=== PATIENT | male | born 1950 | race Caucasian/White ===

== ENCOUNTER 2016-09-18 07:59 | Day surgery (SDC) | payer OTHER ==
[2016-09-16 11:34] VITALS: BMI 35.4
[~2016-09-18 07:59] MED LIST: LACTATED RINGERS 1,000 ML IV SCH; LIDOCAINE 1% 20 ML VIAL (10MG/ML) FOR IV START INTRADERMA PRN
[2016-09-18 08:40] VITALS: RESP 18; TEMP 98.7
[2016-09-18 08:54] LABS: Glucose,Whole Blood 134 mg/dL (75-99)
[2016-09-18] MEDS ORDERED: PROPOFOL 10 MG/ML 20 ML VIAL IV ONE (09:33)
--- NOTE | 2016-09-18 10:21 | P.PCN ---
Date of Procedure: 09/18/16 Procedure(s) Performed: Procedure: Total colonoscopy. Preoperative diagnosis: Screening for neoplasia. Postoperative diagnosis: Exam within normal limits. Preparation: HalfLytely prep. Sedation: Was provided by anesthesia. Brief clinical history: The patient is a 65-year-old male who is referred for this evaluation for screening for neoplasia. He had a colonoscopy years back and he was told he had polyps. He has no abdominal complaints, bleeding or anemia. Procedure: With the patient on his left lateral decubitus position and after informed consent and adequate sedation, the perianal area was inspected and it did not show any fissures or fistulas. There were no masses felt on digital rectal examination. The Olympus CFQ 160L video colonoscope was then inserted in the rectum in the usual fashion and advanced to the cecum. The mucosa appeared healthy. No polyps or tumors were seen or any obvious diverticular disease. I retroflexed the endoscope in the rectum before the endoscope was withdrawn. The patient tolerated the procedure well. Plan: The patient was reassured. He will follow up with you as planned and with his history of polyps, I recommended repeat exam in 5 years.
[2016-09-18 10:40] VITALS: BP 112/56; PULSE 55
== END 2016-09-18 10:52 | disposition home or self-care (01) ==
LOC: ORWHC2ENDO 07:59
DX: Z12.11 Encounter for screening for malignant neoplasm of colon (principal); I10 Essential (primary) hypertension; I25.10 Atherosclerotic heart disease of native coronary artery without angina pectoris; E78.5 Hyperlipidemia, unspecified; E11.9 Type 2 diabetes mellitus without complications; M19.90 Unspecified osteoarthritis, unspecified site; F17.200 Nicotine dependence, unspecified, uncomplicated; Z86.010 Personal history of colon polyps; Z79.84 Long term (current) use of oral hypoglycemic drugs; Z79.1 Long term (current) use of non-steroidal anti-inflammatories (NSAID); Z79.82 Long term (current) use of aspirin; Z79.899 Other long term (current) drug therapy
CPT/HCPCS: G0105; J2704

== ENCOUNTER 2017-08-25 13:49 | Emergency (ER) | payer OTHER ==
--- NOTE | 2017-08-25 15:20 | ED ---
General Adult HPI - General Chief complaint: Shortness of Breath Stated complaint: Legs swelling Time Seen by Provider: 08/25/17 14:06 Source: patient, RN notes reviewed, old records reviewed Mode of arrival: ambulatory Limitations: no limitations - History of Present Illness Initial comments: This is a 66-year-old male to the ER for evaluation of weakness. Shortness of breath and significant lower extremity edema. Patient has history of lung disease and history of heart disease. Patient states he was sent to the ER for evaluation regarding his lower extremity edema. Increased edema despite medication. Patient states he does not take Lasix completely as prescribed. He has had neck history of drinking. No abdominal pain no chest pain or shortness of breath currently. Patient is recent change in medications - Related Data Home Medications Medication Instructions Recorded Confirmed Acetaminophen Tab [Tylenol Tab] 500 mg PO Q6HR PRN 06/03/16 08/25/17 Aspirin EC [Ecotrin] 325 mg PO DAILY 06/03/16 08/25/17 Hydrochlorothiazide [Hydrodiuril] 25 mg PO DAILY 06/03/16 08/25/17 Metoprolol Tartrate [Lopressor] 100 mg PO DAILY 06/03/16 08/25/17 amLODIPine [Norvasc] 10 mg PO DAILY 06/03/16 08/25/17 metFORMIN HCL [Glucophage] 1,000 mg PO BID 09/16/16 08/25/17 Albuterol Nebulized [Ventolin 2.5 mg INHALATION RT-QID 08/25/17 08/25/17 Nebulized] Artificial Tears-Hypromellose 1 drops BOTH EYES QID 08/25/17 08/25/17 [Artificial Tear Drops] Ciprofloxacin Ophth Soln [Cipro 2 drops BOTH EYES BID 08/25/17 08/25/17 0.3% Ophth Soln] Saxagliptin HCl [Onglyza] 2.5 mg PO DAILY 08/25/17 08/25/17 Previous Rx's Medication Instructions Recorded Furosemide [Lasix] 40 mg PO BID #15 tablet 08/25/17 Allergies Allergy/AdvReac Type Severity Reaction Status Date / Time No Known Allergies Allergy Verified 08/25/17 14:46 Review of Systems ROS Statement: Those systems with pertinent positive or pertinent negative responses have been documented in the HPI. ROS Other: All systems not noted in ROS Statement are negative. Past Medical History Past Medical History: Coronary Artery Disease (CAD), Chest Pain / Angina, Heart Failure, Diabetes Mellitus, Hypertension, Osteoarthritis (OA), Skin Disorder Additional Past Medical History / Comment(s): rash on lower legs, History of Any Multi-Drug Resistant Organisms: None Reported Past Surgical History: Cardiac Valve Replacement, Heart Catheterization, Hernia Repair, Orthopedic Surgery Additional Past Surgical History / Comment(s): aortic valve rreplacement 2014 , sternal repair surgery after valve replacement(wire broke), rt knee arthroscopy , rt ear-graft to ear drum, deviated septum repair, Past Anesthesia/Blood Transfusion Reactions: No Reported Reaction Additional Past Anesthesia/Blood Transfusion Reaction / Comment(s): claustrophobia Past Psychological History: No Psychological Hx Reported Smoking Status: Former smoker Past Alcohol Use History: None Reported Past Drug Use History: None Reported - Past Family History Father Family Medical History: Coronary Artery Disease (CAD) Additional Family Medical History / Comment(s): heart client resource specialist replaced Mother Family Medical History: Cancer Additional Family Medical History / Comment(s): ovarian cancer General Exam Limitations: no limitations General appearance: alert, in no apparent distress Head exam: Present: atraumatic, normocephalic, normal inspection Eye exam: Present: normal appearance, PERRL, EOMI. Absent: scleral icterus, conjunctival injection, periorbital swelling ENT exam: Present: normal exam, mucous membranes moist Neck exam: Present: normal inspection. Absent: tenderness, meningismus, lymphadenopathy Respiratory exam: Present: normal lung sounds bilaterally, decreased breath sounds, prolonged expiratory. Absent: respiratory distress, wheezes, rales, rhonchi, stridor Cardiovascular Exam: Present: regular rate, normal rhythm, normal heart sounds. Absent: systolic murmur, diastolic murmur, rubs, gallop, clicks GI/Abdominal exam: Present: soft, normal bowel sounds. Absent: distended, tenderness, guarding, rebound, rigid Extremities exam: Present: normal inspection, full ROM, normal capillary refill , other (Bilateral Shorty edema, 3+). Absent: tenderness, pedal edema, joint swelling, calf tenderness Back exam: Present: normal inspection Neurological exam: Present: alert, oriented X3, CN II-XII intact Psychiatric exam: Present: normal affect, normal mood Skin exam: Present: warm, dry, intact, normal color. Absent: rash Course Vital Signs 08/25/17 08/25/17 08/25/17 14:02 14:49 16:13 Temperature 98.3 F 98.5 F Pulse Rate 62 55 L Pulse Rate [ 60 Pulse Oximetery ] Respiratory 20 18 Rate Blood Pressure 145/68 125/66 O2 Sat by Pulse 98 99 Oximetry EKG Findings - EKG Comments: EKG Findings:: EKG shows sinus bradycardia rate 59, NM 176, QRS 104, QTC 445 Medical Decision Making - Medical Decision Making 66 male the ER for evaluation. Patient presents for evaluation regarding lower extremity edema, no significant cause found. Patient can be discharged home - Lab Data Result diagrams: 08/25/17 14:48 08/25/17 14:48 Lab Results 08/25/17 08/25/17 08/25/17 Range/Units 14:48 14:48 14:48 WBC 10.1 (3.8-10.6) k/uL RBC 4.54 (4.30-5.90) m/uL Hgb 14.2 (13.0-17.5) gm/dL Hct 41.2 (39.0-53.0) % MCV 90.8 (80.0-100.0) fL MCH 31.3 (25.0-35.0) pg MCHC 34.5 (31.0-37.0) g/dL RDW 12.6 (11.5-15.5) % Plt Count 231 (150-450) k/uL Neutrophils % 62 % Lymphocytes % 27 % Monocytes % 6 % Eosinophils % 2 % Basophils % 1 % Neutrophils # 6.2 (1.3-7.7) k/uL Lymphocytes # 2.8 (1.0-4.8) k/uL Monocytes # 0.6 (0-1.0) k/uL Eosinophils # 0.2 (0-0.7) k/uL Basophils # 0.1 (0-0.2) k/uL PT (9.0-12.0) sec INR (<1.2) APTT (22.0-30.0) sec D-Dimer (<0.60) mg/L FEU Sodium 141 (137-145) mmol/L Potassium 3.8 (3.5-5.1) mmol/L Chloride 104 (98-107) mmol/L Carbon Dioxide 26 (22-30) mmol/L Anion Gap 11 mmol/L BUN 16 (9-20) mg/dL Creatinine 0.80 (0.66-1.25) mg/dL Est GFR (MDRD) Af Amer >60 (>60 ml/min/1.73 sqM) Est GFR (MDRD) Non-Af >60 (>60 ml/min/1.73 sqM) Glucose 124 H (74-99) mg/dL Calcium 9.7 (8.4-10.2) mg/dL Phosphorus 3.5 (2.5-4.5) mg/dL Magnesium 1.9 (1.6-2.3) mg/dL Total Bilirubin 0.6 (0.2-1.3) mg/dL AST 18 (17-59) U/L ALT 27 (21-72) U/L Alkaline Phosphatase 49 (38-126) U/L Total Creatine Kinase 71 (55-170) U/L CK-MB (CK-2) 1.4 (0.0-2.4) ng/mL CK-MB (CK-2) Rel Index 2.0 Troponin I <0.012 (0.000-0.034) ng/mL NT-Pro-B Natriuret Pep pg/mL Total Protein 7.4 (6.3-8.2) g/dL Albumin 4.3 (3.5-5.0) g/dL 08/25/17 08/25/17 Range/Units 14:48 14:48 WBC (3.8-10.6) k/uL RBC (4.30-5.90) m/uL Hgb (13.0-17.5) gm/dL Hct (39.0-53.0) % MCV (80.0-100.0) fL MCH (25.0-35.0) pg MCHC (31.0-37.0) g/dL RDW (11.5-15.5) % Plt Count (150-450) k/uL Neutrophils % % Lymphocytes % % Monocytes % % Eosinophils % % Basophils % % Neutrophils # (1.3-7.7) k/uL Lymphocytes # (1.0-4.8) k/uL Monocytes # (0-1.0) k/uL Eosinophils # (0-0.7) k/uL Basophils # (0-0.2) k/uL PT 10.6 (9.0-12.0) sec INR 1.1 (<1.2) APTT 23.8 (22.0-30.0) sec D-Dimer 0.46 (<0.60) mg/L FEU Sodium (137-145) mmol/L Potassium (3.5-5.1) mmol/L Chloride (98-107) mmol/L Carbon Dioxide (22-30) mmol/L Anion Gap mmol/L BUN (9-20) mg/dL Creatinine (0.66-1.25) mg/dL Est GFR (MDRD) Af Amer (>60 ml/min/1.73 sqM) Est GFR (MDRD) Non-Af (>60 ml/min/1.73 sqM) Glucose (74-99) mg/dL Calcium (8.4-10.2) mg/dL Phosphorus (2.5-4.5) mg/dL Magnesium (1.6-2.3) mg/dL Total Bilirubin (0.2-1.3) mg/dL AST (17-59) U/L ALT (21-72) U/L Alkaline Phosphatase (38-126) U/L Total Creatine Kinase (55-170) U/L CK-MB (CK-2) (0.0-2.4) ng/mL CK-MB (CK-2) Rel Index Troponin I (0.000-0.034) ng/mL NT-Pro-B Natriuret Pep 228 pg/mL Total Protein (6.3-8.2) g/dL Albumin (3.5-5.0) g/dL - Radiology Data Radiology results: report reviewed (Ultrasound lower extremity is negative), image reviewed Disposition Clinical Impression: Bilateral leg edema Disposition: HOME SELF-CARE Condition: Good Instructions: Leg Edema (ED) Prescriptions: Furosemide [Lasix] 40 mg PO BID #15 tablet Referrals: [facility],Clinic [Primary Care Provider] - 1-2 days
[2017-08-25 15:27] LABS: Basophils # (A) 0.1 k/uL (0-0.2); Basophils % (A) 1 %; Eosinophils # (A) 0.2 k/uL (0-0.7); Eosinophils % (A) 2 %; HCT 41.2 % (39.0-53.0); HGB 14.2 gm/dL (13.0-17.5); Lymphocytes # (A) 2.8 k/uL (1.0-4.8); Lymphocytes % (A) 27 %; MCH 31.3 pg (25.0-35.0); MCHC 34.5 g/dL (31.0-37.0); MCV 90.8 fL (80.0-100.0); Mean Platelet Volume 7.4; Monocytes # (A) 0.6 k/uL (0-1.0); Monocytes % (A) 6 %; Neutrophils # (A) 6.2 k/uL (1.3-7.7); Neutrophils % (A) 62 %; Platelet Count 231 k/uL (150-450); RBC 4.54 m/uL (4.30-5.90); RDW 12.6 % (11.5-15.5); WBC 10.1 k/uL (3.8-10.6)
[2017-08-25 15:37] LABS: ALT 27 U/L (21-72); AST 18 U/L (17-59); Albumin 4.3 g/dL (3.5-5.0); Alkaline Phosphatase 49 U/L (38-126); Anion Gap 11 mmol/L; Blood Urea Nitrogen 16 mg/dL (9-20); Calcium 9.7 mg/dL (8.4-10.2); Carbon Dioxide 26 mmol/L (22-30); Chloride 104 mmol/L (98-107); Glucose 124 mg/dL (74-99); Magnesium 1.9 mg/dL (1.6-2.3); Phosphorus 3.5 mg/dL (2.5-4.5); Potassium 3.8 mmol/L (3.5-5.1); Sodium 141 mmol/L (137-145); Total Bilirubin 0.6 mg/dL (0.2-1.3); Total Protein 7.4 g/dL (6.3-8.2)
[2017-08-25 15:38] LABS: INR 1.1 (<1.2); Partial Thromboplastin Time 23.8 sec (22.0-30.0); Prothrombin Time 10.6 sec (9.0-12.0)
--- NOTE | 2017-08-25 15:39 | US ---
EXAMINATION TYPE: US venous doppler duplex LE DATE OF EXAM: 08/25/2017 3:32 PM COMPARISON: NONE CLINICAL HISTORY: Pain. Swelling SIDE PERFORMED: Bilateral TECHNIQUE: The lower extremity deep venous system is examined utilizing real time linear array sonog lindy with graded compression, doppler sonography and color-flow sonography. VESSELS IMAGED: External Iliac Vein (EIV) Common Femoral Vein Deep Femoral Vein Greater Saphenous Vein * Femoral Vein Popliteal Vein Small Saphenous Vein * Proximal Calf Veins (* superficial vessels) Grayscale, color doppler, spectral doppler imaging performed of the deep veins of the lower extremiti es. There is normal flow, compressibility, vascular waveforms. Right Leg: Negative for DVT Left Leg: Negative for DVT IMPRESSION: No sonographic evidence of deep venous thrombosis within either lower extremity.
[2017-08-25] MEDS ORDERED: ACETAMINOPHEN TAB 325 MG TAB PO STA (15:43)
[2017-08-25 15:44] LABS: D-Dimer 0.46 mg/L FEU (<0.60)
[2017-08-25 15:54] LABS: Creatine Kinase 71 U/L (55-170)
[2017-08-25 16:07] LABS: Creatine Kinase MB 1.4 ng/mL (0.0-2.4); Troponin I <0.012 ng/mL (0.000-0.034)
--- NOTE | 2017-08-25 16:10 | XR ---
EXAMINATION TYPE: XR chest 2V DATE OF EXAM: 08/25/2017 COMPARISON: 06/03/2016 HISTORY: Weakness, edema, chest pain, and shortness of breath. TECHNIQUE: Frontal and lateral views of the chest are obtained. FINDINGS: There is no focal air space opacity, pleural effusion, or pneumothorax seen. The cardiac silhouette size is upper limits normal. Cardiac valvular replacement is noted. Midline sternotomy w ires are present. There is dehiscence of the mid sternotomy wire, unchanged from the prior. The osseo us structures are intact. Mild acromio clavicular arthropathy is present. IMPRESSION: No acute cardiopulmonary process.
[2017-08-25 16:14] VITALS: BP 125/66; PULSE 55; RESP 18; TEMP 98.5
== END 2017-08-25 16:40 | disposition home or self-care (01) ==
LOC: EC 13:49
DX: R60.0 Localized edema (principal); R06.02 Shortness of breath; R53.1 Weakness; I25.119 Atherosclerotic heart disease of native coronary artery with unspecified angina pectoris; I11.0 Hypertensive heart disease with heart failure; I50.9 Heart failure, unspecified; E11.9 Type 2 diabetes mellitus without complications; Z87.891 Personal history of nicotine dependence; Z79.82 Long term (current) use of aspirin; Z79.84 Long term (current) use of oral hypoglycemic drugs; Z79.899 Other long term (current) drug therapy
CPT/HCPCS: 36415; 71046; 80053; 82550; 82553; 83735; 83880; 84100; 84484; 85025; 85379; 85610; 85730; 93005; 93970; 99285

== ENCOUNTER → 2019-02-25 | Outpatient (CLI) | payer OTHER ==
[2019-02-25 11:09] LABS: HCT 43.5 % (39.0-53.0); HGB 14.7 gm/dL (13.0-17.5); MCH 31.4 pg (25.0-35.0); MCHC 33.8 g/dL (31.0-37.0); MCV 92.9 fL (80.0-100.0); Mean Platelet Volume 8.3; Platelet Count 201 k/uL (150-450); RBC 4.68 m/uL (4.30-5.90); WBC 8.3 k/uL (3.8-10.6)
[2019-02-25 11:24] LABS: Magnesium 2.1 mg/dL (1.6-2.3); Potassium 4.9 mmol/L (3.5-5.1)
== END | disposition home or self-care (01) ==
LOC: LABPAT 10:34
PROVIDERS: ATTEND Internal Medicine Cardiovascular Disease
DX: Z01.812 Encounter for preprocedural laboratory examination (principal); I35.9 Nonrheumatic aortic valve disorder, unspecified; R00.1 Bradycardia, unspecified
CPT/HCPCS: 36415; 80051; 82565; 82947; 83735; 84520; 85027

== ENCOUNTER 2019-03-14 06:09 | Day surgery (SDC) | payer OTHER ==
[2019-03-08 11:38] VITALS: BMI 38.4
[~2019-03-14 06:09] MED LIST changes: +ALPRAZolam 0.25 MG TAB PO PRN; +ALPRAZolam 0.5 MG TAB PO PRN; +ASPIRIN 325 MG TAB PO STA; +ATORVASTATIN 80 MG TAB PO STA; -LACTATED RINGERS 1,000 ML IV SCH; -LIDOCAINE 1% 20 ML VIAL (10MG/ML) FOR IV START INTRADERMA PRN; +NITROGLYCERIN SL TABS 0.4 MG TAB SUBLINGUAL PRN; +SODIUM CHLORIDE 0.9% 1,000 ML in EMPTY BAG 1 BAG IV ONE
[2019-03-14] MEDS ORDERED: ASPIRIN 81 MG ONE (06:50)
[2019-03-14 06:55] VITALS: TEMP 98
[2019-03-14] MEDS ORDERED: VERAPAMIL 2.5 MG/ML 2 ML AMP ONE (07:30)
[2019-03-14] MEDS ORDERED: LIDOCAINE 1% INJ 10MG/ML (20 ML MDV) ONE (07:30)
[2019-03-14] MEDS ORDERED: fentaNYL (PF) 50 MCG/ML 2 ML AMP ONE (07:34)
[2019-03-14] MEDS ORDERED: MIDAZOLAM (PF) 2 MG/2 ML VIAL IV ONE (07:47)
[2019-03-14] MEDS ORDERED: fentaNYL (PF) 50 MCG/ML 2 ML AMP IV ONE (07:47)
[2019-03-14] MEDS ORDERED: LIDOCAINE 1% INJ 10MG/ML (20 ML MDV) SQ ONE (07:49)
[2019-03-14] MEDS ORDERED: VERAPAMIL SYRINGE (5 MG/10 ML) INTRAARTER ONE ×2 (07:50→08:00)
[2019-03-14] MEDS ORDERED: HEPARIN SODIUM 1,000 UN/ML (10ML VL) IV ONE (07:52)
[2019-03-14] MEDS ORDERED: IOPAMIDOL-370 125ML BTL INJ ONE (08:00)
[2019-03-14] MEDS ORDERED: RX INFO: IV CONTRAST WAS GIVEN 1 EACH MISC MISCELLANE PRN (08:08)
[2019-03-14] MEDS ORDERED: SODIUM CHLORIDE 0.9% 1,000 ML IV SCH (08:15)
--- NOTE | 2019-03-14 08:17 | P.CARDCATH ---
Date of Procedure: 03/14/19 Preoperative Diagnosis: Symptoms of shortness of breath and positive stress test Postoperative Diagnosis: Mild coronary artery disease Procedure(s) Performed: Left heart catheterization without left ventriculography Description of Procedure: HISTORY: This is a 68-year-old gentleman with history of hypertension, hypercholesterolemia and diabetes and also previous aortic valve replacement who has been experiencing exertional shortness of breath. Patient had echocardiogram and stress test. Echocardiogram showed normal LV function and normal function of the prosthetic aortic valve. Stress test is size to possible multivessel disease. Patient is advised to have a cardiac catheterization for definitive diagnosis. CONSENT:I have discussed the risks, benefits and alternative therapies for the above-mentioned procedure and for both sedation/analgesia as well as necessary blood product administration, if indicated, as they pertain to this patient. The patient has indicated understanding and acceptance of the risks and procedures discussed. PROCEDURE: Patient was brought to the lab in a fasting state. Patient was given some IV sedation. The right wrist is infiltrated with lidocaine and right radial artery was entered using Seldinger technique. A 6-Kyrgyz catheter was left in place and selective coronary arteriography was performed. Patient tolerated the procedure well. TR band was applied for hemostasis. No immediate complications were noted and patient was transferred to [facility] in a stable condition Conscious Sedation: Versed 1mg Fentanyl 50 g Duration 13 minutes HEMODYNAMICS: The aortic pressure was 140/70. Left ventricular end-diastolic pressure was not measured SELECTIVE CORONARY ARTERIOGRAPHY: LEFT MAIN: Normal length and free of any occlusive disease THE LEFT ANTERIOR DESCENDING CORONARY ARTERY:. Good caliber vessel which wraps around the apex and gives rise to several septal and small diagonal branches. The LAD has mild irregularities in the proximal portion without any significant obstructive disease THE LEFT CIRCUMFLEX AND IS CORONARY ARTERY:. Small and nondominant vessel free of any occlusive disease THE RIGHT CORONARY ARTERY:. Dominant vessel with about 30% stenosis in the midportion LEFT VENTRICULOGRAPHY: Not performed FINAL IMPRESSION:. Mild coronary artery disease with a plaque in the LAD and also 30-40% lesion in mid RCA. PLAN: Maximum medical therapy and risk factor modification PROGNOSIS:. Good
[2019-03-14 08:44] VITALS: RESP 18
[2019-03-14 09:58] VITALS: BP 114/54; PULSE 54
== END 2019-03-14 11:55 | disposition home or self-care (01) ==
LOC: CATHCVL 06:09
PROVIDERS: ATTEND Internal Medicine Cardiovascular Disease
DX: I25.10 Atherosclerotic heart disease of native coronary artery without angina pectoris (principal); I10 Essential (primary) hypertension; I35.9 Nonrheumatic aortic valve disorder, unspecified; E78.00 Pure hypercholesterolemia, unspecified; E11.9 Type 2 diabetes mellitus without complications; E78.5 Hyperlipidemia, unspecified; Z95.2 Presence of prosthetic heart valve; Z79.82 Long term (current) use of aspirin; Z79.84 Long term (current) use of oral hypoglycemic drugs; Z79.899 Other long term (current) drug therapy
CPT/HCPCS: 93454; C1894; J2001; J3010; J1644; Q9967; J2250

== ENCOUNTER 2020-01-03 08:58 | Emergency (ER) | payer OTHER ==
[2020-01-03] MEDS ORDERED: DIPH,PERTUS(ACELL)TETVAC-LF 0.5 ML VIAL IM ONE (09:41)
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
[2020-01-03] MEDS ORDERED: ACETAMINOPHEN TAB 500 MG TAB PO STA (10:00)
[2020-01-03] MEDS ORDERED: SODIUM CHLORIDE 0.9% 1,000 ML IV STA (10:03)
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
[2020-01-03 10:41] VITALS: RESP 18
[2020-01-03 10:51] LABS: Basophils # (A) 0.1 k/uL (0-0.2); Basophils % (A) 1 %; Eosinophils # (A) 0.2 k/uL (0-0.7); Eosinophils % (A) 2 %; HCT 44.8 % (39.0-53.0); HGB 14.3 gm/dL (13.0-17.5); Lymphocytes % (A) 15 %; MCH 29.7 pg (25.0-35.0); MCHC 31.8 g/dL (31.0-37.0); MCV 93.4 fL (80.0-100.0); Mean Platelet Volume 8.4; Monocytes # (A) 0.6 k/uL (0-1.0); Monocytes % (A) 5 %; Neutrophils # (A) 9.7 k/uL (1.3-7.7); Neutrophils % (A) 76 %; Platelet Count 201 k/uL (150-450); WBC 12.8 k/uL (3.8-10.6)
[2020-01-03 11:01] LABS: African American GFR (CKD) >90 (>60 ml/min/1.73 sqM); Anion Gap 7 mmol/L; Blood Urea Nitrogen 19 mg/dL (9-20); Calcium 8.8 mg/dL (8.4-10.2); Carbon Dioxide 24 mmol/L (22-30); Chloride 107 mmol/L (98-107); Glucose 187 mg/dL (74-99); Non-African American GFR(CKD) >90 (>60 ml/min/1.73 sqM); Potassium 4.5 mmol/L (3.5-5.1); Sodium 138 mmol/L (137-145)
[2020-01-03 11:08] LABS: Partial Thromboplastin Time 23.7 sec (22.0-30.0); Prothrombin Time 10.5 sec (9.0-12.0)
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
[2020-01-03] MEDS ORDERED: PROPARACAINE 0.5% OPHTH DROPS 15 ML BTL RIGHT EYE STA (11:57)
[2020-01-03] MEDS ORDERED: MORPHINE SULFATE 4 MG/ML SYRINGE IVP STA (12:04)
[2020-01-03 12:24] VITALS: BP 169/81; PULSE 62; TEMP 98.1
[2020-01-03] MEDS ORDERED: ACET/COD 300 MG/30 MG STARTER PACK 6 TAB BTL PO STA (12:46)
== END 2020-01-03 12:52 | disposition home or self-care (01) ==
LOC: EC 08:58 → SUPCPDRO 08:58 → EC 12:52
DX: S52.121A Displaced fracture of head of right radius, initial encounter for closed fracture (principal); S02.85XA Fracture of orbit, unspecified, initial encounter for closed fracture; S83.011A Lateral subluxation of right patella, initial encounter; S00.31XA Abrasion of nose, initial encounter; S00.81XA Abrasion of other part of head, initial encounter; D72.829 Elevated white blood cell count, unspecified; I25.10 Atherosclerotic heart disease of native coronary artery without angina pectoris; I11.0 Hypertensive heart disease with heart failure; I50.9 Heart failure, unspecified; E11.9 Type 2 diabetes mellitus without complications; M19.90 Unspecified osteoarthritis, unspecified site; Z23 Encounter for immunization; Z95.2 Presence of prosthetic heart valve; Z95.818 Presence of other cardiac implants and grafts; Z87.891 Personal history of nicotine dependence; Z79.1 Long term (current) use of non-steroidal anti-inflammatories (NSAID); Z79.82 Long term (current) use of aspirin; Z79.51 Long term (current) use of inhaled steroids; Z79.84 Long term (current) use of oral hypoglycemic drugs; Z79.899 Other long term (current) drug therapy; Z88.8 Allergy status to other drugs, medicaments and biological substances; V18.4XXA Pedal cycle driver injured in noncollision transport accident in traffic accident, initial encounter; Y93.55 Activity, bike riding; Y92.89 Other specified places as the place of occurrence of the external cause
CPT/HCPCS: 36415; 80048; 85025; 85610; 85730; 72170; 73030; 73080; 73564; 71045; 72125; 70486; 70450; 90715; 99285; 29105; 96374; 96361; 90471; J2270

== ENCOUNTER → 2020-02-14 | Outpatient (CLI) | payer OTHER ==
[2020-02-14 12:26] LABS: Basophils # (A) 0.1 k/uL (0-0.2); Basophils % (A) 1 %; Eosinophils # (A) 0.1 k/uL (0-0.7); Eosinophils % (A) 1 %; HCT 42.1 % (39.0-53.0); HGB 13.4 gm/dL (13.0-17.5); Lymphocytes # (A) 2.5 k/uL (1.0-4.8); Lymphocytes % (A) 27 %; MCH 29.9 pg (25.0-35.0); MCHC 31.9 g/dL (31.0-37.0); MCV 93.7 fL (80.0-100.0); Mean Platelet Volume 8.5; Monocytes # (A) 0.5 k/uL (0-1.0); Monocytes % (A) 5 %; Neutrophils # (A) 5.9 k/uL (1.3-7.7); Neutrophils % (A) 64 %; Platelet Count 186 k/uL (150-450); RBC 4.49 m/uL (4.30-5.90); RDW 13.2 % (11.5-15.5); WBC 9.3 k/uL (3.8-10.6)
[2020-02-14 17:19] LABS: Hemoglobin A1C 7.6 % (4.0-6.0)
[2020-02-14 18:28] LABS: African American GFR (CKD) 80.1 (60.0-200.0); Albumin 4.2 g/dL (3.80-4.90); Albumin/Globulin Ratio 1.62 (1.60-3.17); Anion Gap 9.5 mmol/L (4.00-12.00); BUN/Creat Ratio 23.64 Ratio (12.00-20.00); Calcium 9.2 mg/dL (8.7-10.3); Carbon Dioxide 22.5 mmol/L (21.6-31.8); Chol/HDL Ratio 4.67; Globulin 2.6 g/dL (1.6-3.3); LDL Cholesterol,Calculated 116.8 mg/dL (0.0-131.0); Non-African American GFR(CKD) 69.1 (60.0-200.0); Potassium 4.4 mmol/L (3.5-5.5); Total Bilirubin 0.5 mg/dL (0.2-1.2); Total Protein 6.8 g/dL (6.2-8.2); VLDL Calculation 15.2 mg/dL (5.00-40.00)
== END | disposition home or self-care (01) ==
LOC: LABWHC1 10:21
PROVIDERS: ATTEND Internal Medicine Cardiovascular Disease
DX: I10 Essential (primary) hypertension (principal); E11.9 Type 2 diabetes mellitus without complications; I25.10 Atherosclerotic heart disease of native coronary artery without angina pectoris; E78.5 Hyperlipidemia, unspecified
CPT/HCPCS: 36415; 80053; 80061; 83036; 85025

== ENCOUNTER 2021-08-27 07:06 | Day surgery (SDC) | payer OTHER ==
[2021-08-23 15:28] VITALS: BMI 36.9
[~2021-08-27 07:06] MED LIST changes: -ALPRAZolam 0.25 MG TAB PO PRN; -ALPRAZolam 0.5 MG TAB PO PRN; -ASPIRIN 325 MG TAB PO STA; -ATORVASTATIN 80 MG TAB PO STA; +LACTATED RINGERS 1,000 ML IV SCH; -NITROGLYCERIN SL TABS 0.4 MG TAB SUBLINGUAL PRN; -SODIUM CHLORIDE 0.9% 1,000 ML in EMPTY BAG 1 BAG IV ONE
[2021-08-27] MEDS ORDERED: LACTATED RINGERS 1,000 ML IV ONE (08:00)
[2021-08-27 08:06] VITALS: TEMP 97.1
[2021-08-27 08:10] LABS: Glucose,Whole Blood 171 mg/dL (75-99)
[2021-08-27] MEDS ORDERED: LIDOCAINE 1% INJ 10MG/ML (20 ML MDV) ONE (08:24)
[2021-08-27] MEDS ORDERED: PROPOFOL 10 MG/ML 20 ML VIAL IV ONE (08:24)
--- NOTE | 2021-08-27 08:42 | P.PCN ---
Date of Procedure: 08/27/21 Procedure(s) Performed: BRIEF HISTORY: Patient is a 70-year-old pleasant male scheduled for an elective colonoscopy as a part of evaluation of prior history of colon polyps. Last colonoscopy was 5 years ago. PROCEDURE PERFORMED: Colonoscopy snare polypectomy. PREOPERATIVE DIAGNOSIS: History of colon polyps. IV sedation per Anesthesia. PROCEDURE: After informed consent was obtained, the patient, was brought into the endoscopy unit. IV sedation was administered by Anesthesia under continuous monitoring. Digital rectal examination was normal. Initially the Olympus CF-160 flexible video colonoscope was then inserted in the rectum, gradually advanced into the cecum without any difficulty. Careful examination was performed as the scope was gradually being withdrawn. Ileocecal valve and the appendiceal orifice were visualized and appeared normal. Prep was excellent. His of the cecum there was a 7 mm and 8 mm sessile polyp removed by snare polypectomy. In the ascending colon there was a 1 cm polyp removed by snare polypectomy. In the transverse colon there was a 5 mm polyp removed by snare polypectomy. Rest of the cecum, ascending colon, transverse colon, descending colon, sigmoid colon, and rectum appeared normal. scattered sigmoid diverticulosis. Retroflexion was performed in the rectum and no lesions were seen. The patient tolerated the procedure well. IMPRESSION: 7 mm and 8 mm cecal polyp status post polypectomy 1 cm broad-based ascending colon polyp status post-polypectomy 5 mm transverse colon polyp status post polypectomy Scattered sigmoid diverticulosis. RECOMMENDATIONS: Findings of this examination were discussed with the patient . He was advised to follow with the biopsy results. If the biopsy reveals adenoma he can have a repeat colonoscopy in 3 years
[2021-08-27 08:57] VITALS: RESP 16
[2021-08-27 09:01] VITALS: BP 152/64; PULSE 59
== END 2021-08-27 09:20 | disposition home or self-care (01) ==
LOC: ORWHC2ENDO 07:06
PROVIDERS: ATTEND Internal Medicine Gastroenterology
DX: Z12.11 Encounter for screening for malignant neoplasm of colon (principal); D12.2 Benign neoplasm of ascending colon; D12.0 Benign neoplasm of cecum; D12.3 Benign neoplasm of transverse colon; K57.30 Diverticulosis of large intestine without perforation or abscess without bleeding; Z86.010 Personal history of colon polyps; I25.10 Atherosclerotic heart disease of native coronary artery without angina pectoris; I11.0 Hypertensive heart disease with heart failure; I50.9 Heart failure, unspecified; E78.5 Hyperlipidemia, unspecified; E66.9 Obesity, unspecified; Z68.36 Body mass index [BMI] 36.0-36.9, adult; E11.9 Type 2 diabetes mellitus without complications; Z79.84 Long term (current) use of oral hypoglycemic drugs; Z79.82 Long term (current) use of aspirin; Z79.899 Other long term (current) drug therapy; Z79.51 Long term (current) use of inhaled steroids; Z88.8 Allergy status to other drugs, medicaments and biological substances
CPT/HCPCS: 88305; 45385; J2001; J2704

== ENCOUNTER 2024-10-21 06:13 | Day surgery (SDC) | payer OTHER ==
[~2024-10-21 06:13] MED LIST changes: -LACTATED RINGERS 1,000 ML IV SCH; +SODIUM CHLORIDE 0.9% 500 ML IV SCH
[2024-10-21] MEDS: IV FLUID CONTINUATION 500 ML IV ONE (07:00)
[2024-10-21 07:18] LABS: Glucose,Whole Blood 185 mg/dL (70-110)
[2024-10-21 07:22] VITALS: TEMP 97.8
[2024-10-21] MEDS ORDERED: PROPOFOL 10 MG/ML 20 ML VIAL IV ONE (07:23)
[2024-10-21] MEDS ORDERED: LIDOCAINE 1% INJ 10MG/ML (20 ML MDV) ONE (07:23)
[2024-10-21] MEDS: BENZOCAINE SPRAY 1 EACH TOPICAL STA (07:27)
[2024-10-21 07:52] LABS: African American GFR (CKD) 48 (>60 ml/min/1.73 sqM); Anion Gap 11 mmol/L; Blood Urea Nitrogen 29 mg/dL (9-20); Calcium 9.5 mg/dL (8.4-10.2); Carbon Dioxide 22 mmol/L (22-30); Chloride 109 mmol/L (98-107); Glucose 202 mg/dL (74-99); Non-African American GFR(CKD) 42 (>60 ml/min/1.73 sqM); Potassium 4.5 mmol/L (3.5-5.1); Sodium 142 mmol/L (137-145)
[2024-10-21 09:17] VITALS: BP 133/78; PULSE 52; RESP 99
--- NOTE | 2024-10-21 13:56 | ECHOT ---
TRANSESOPHAGEAL ECHOCARDIOGRAM INDICATION: Atrial flutter, rule out intracardiac thrombus prior to cardioversion. PROCEDURE NOTE: After obtaining informed consent, transesophageal echocardiogram was performed in left lateral position using an Omniplane probe. Local and IV sedation were obtained by the snath handle assembler. The patient tolerated the procedure well without any obvious immediate complications. FINDINGS: 1. There is an echodense lesion noted within the left atrial appendage suggestive of a thrombus. 2. Left atrium appears mildly enlarged. Right atrium and right ventricle seem within normal limits. 3. Left ventricle has normal size and systolic function. There is a bioprosthetic valve in aortic position that is functioning normally. There is no evidence of aortic stenosis or regurgitation. There is mild mitral and tricuspid regurgitation. 4. Interatrial septum, there is no evidence of [id number] shunt by color flow Doppler, but there was evidence of [id number] shunt by agitated saline contrast study. CONCLUSIONS: 1. Normal functioning bioprosthetic valve in aortic position. 2. Intracardiac thrombus within the left atrial appendage. PLAN: I am going to cancel the cardioversion at this time and continue him on the Eliquis. MMODL / IJN: [id number] /
== END 2024-10-21 09:48 | disposition home or self-care (01) ==
LOC: OR 06:13
PROVIDERS: ATTEND Internal Medicine Cardiovascular Disease
DX: I48.3 Typical atrial flutter (principal); E11.9 Type 2 diabetes mellitus without complications; I10 Essential (primary) hypertension; E78.5 Hyperlipidemia, unspecified; F17.210 Nicotine dependence, cigarettes, uncomplicated; Z79.84 Long term (current) use of oral hypoglycemic drugs; Z79.01 Long term (current) use of anticoagulants
CPT/HCPCS: 93312; 93320; 93325; 80048; J2003; J2704

== ENCOUNTER 2024-12-21 06:19 | Day surgery (SDC) | payer OTHER ==
[~2024-12-21 06:19] MED LIST changes: +LACTATED RINGERS 1,000 ML IV SCH; +SODIUM CHLORIDE 0.9% 500 ML 500 ML IV SCH; -SODIUM CHLORIDE 0.9% 500 ML IV SCH
[2024-12-21 07:00] VITALS: TEMP 97.6
[2024-12-21] MEDS: SODIUM CHLORIDE 0.9% 500 ML 500 ML IV ONE (07:10)
[2024-12-21 07:18] LABS: Glucose,Whole Blood 237 mg/dL (70-110)
[2024-12-21] MEDS ORDERED: LIDOCAINE 1% INJ 10MG/ML (20 ML MDV) ONE (07:30)
[2024-12-21] MEDS ORDERED: PROPOFOL 10 MG/ML 20 ML VIAL IV ONE (07:30)
[2024-12-21] MEDS ORDERED: SODIUM CHLORIDE 0.9% 1,000 ML IV SCH (08:00)
[2024-12-21 08:22] LABS: Glucose,Whole Blood 211 mg/dL (70-110)
[2024-12-21 09:01] VITALS: BP 117/78; PULSE 53; RESP 16
--- NOTE | 2024-12-21 09:35 | ECHOS ---
STRESS ECHOCARDIOGRAM There are 2 procedures, BIBIANA and cardioversion. Procedure note #1 STUDY PERFORMED: BIBIANA. INDICATION: Atypical atrial flutter to rule out intracardiac thrombus. PROCEDURE NOTE: After obtaining informed consent, transesophageal echocardiogram was performed in left lateral position using an Omniplane probe. Local and IV sedation were obtained by the human relations professor. The patient tolerated the procedure well without any obvious immediate complications. FINDINGS: 1. There is no intracardiac thrombus within the left atrial appendage, left atrium, right atrium, right ventricle. 2. Left ventricle has normal size and systolic function. 3. Left atrium appears enlarged. 4. Right atrium, right ventricle seen within normal limits. 5. There is a bioprosthetic valve in aortic position that is functioning normally without any evidence of aortic stenosis or regurgitation. There is mild mitral and tricuspid regurgitation. There is no evidence of [id number] shunt by color-flow Doppler. CONCLUSIONS: No intracardiac thrombus. PLAN: We will proceed with cardioversion. Procedure note #2 STUDY PERFORMED: Cardioversion note. INDICATION: Symptomatic atrial flutter. PROCEDURE NOTE: Cardioversion was performed using 120 joules of synchronized DC current. The patient was adequately anticoagulated with Eliquis and a BIBIANA had ruled out intracardiac thrombus. The patient converted to sinus rhythm and remained in sinus rhythm following a single shock and will continue the Eliquis. MMODL / IJN: [id number] /
== END 2024-12-21 09:10 | disposition home or self-care (01) ==
LOC: OR 06:19
PROVIDERS: ATTEND Internal Medicine Cardiovascular Disease
DX: I08.1 Rheumatic disorders of both mitral and tricuspid valves (principal); I25.10 Atherosclerotic heart disease of native coronary artery without angina pectoris; I48.3 Typical atrial flutter; Z79.01 Long term (current) use of anticoagulants; E11.9 Type 2 diabetes mellitus without complications; I10 Essential (primary) hypertension; Z79.899 Other long term (current) drug therapy; Z95.2 Presence of prosthetic heart valve; Z79.84 Long term (current) use of oral hypoglycemic drugs
CPT/HCPCS: 93312; 93320; 93325; 92960; J2003; J2704